=== PATIENT | female | born 1945 | race Caucasian/White ===

== ENCOUNTER → 2020-12-02 06:44 | Outpatient (CLI) | payer OTHER, SELFPAY ==
[2020-12-03 21:01] LABS: SARS-CoV-2 RNA PCR Negative
== END ==
PROVIDERS: PCP Internal Medicine; Visit Provider Internal Medicine
DX: Z20.822 Contact with and (suspected) exposure to COVID-19 (principal)
CPT/HCPCS: C9803; U0003; U0005

== ENCOUNTER 2021-06-09 01:12 | Day surgery (SDC) | payer OTHER, SELFPAY ==
[2021-06-07 14:41] VITALS: BMI 22.3
--- NOTE | 2021-06-08 10:56 | P.PNAN_ITS ---
Anes - Initial Pre Proc Eval Procedure: Operation Date: 06/09/21 11:45 Proposed Procedures p Trans Urethral Resection Bladder Tumor - Derek Zhang MD s Cystoscopy, Bilateral Retrograde Pyelogram - Derek Zhang MD Date/Time: 06/08/21 10:56 Surgeon: Derek Zhang MD Pre Op Diagnosis: bladder tumor, bladder CA Patient Data Age: 75 Gender: F Height: 1.65 m Weight: 60.9 kg Allergies Allergy/AdvReac Type Severity Reaction Status Date / Time sulfamethizole Allergy Unknown Pruritic Verified 06/07/21 14:36 rash trimethoprim Allergy Unknown Pruritic Verified 06/07/21 14:36 rash Home Medications Medication Instructions Recorded Confirmed Type conjugated estrogens 0.3 mg tablet 0.3 mg PO DAILY 08/08/19 06/07/21 History mirabegron 50 mg tablet,extended 50 mg PO QAM 09/01/19 06/07/21 History release 24 hr levothyroxine 75 mcg QAM 06/07/21 06/07/21 History oxybutynin chloride 5 mg PO QAM 06/07/21 06/07/21 History Patient hx anesthesia problems: none Family hx anesthesia problems: none Results Review: All pre-operative results and documents have been reviewed as part of the pre-operative evaluation. [facility] Past Medical History Medical History (Updated 06/08/21 @ 10:57 by Franck Rice DO) Bladder cancer Chronic pain of both knees Hypothyroidism Mild cognitive impairment Mixed stress and urge urinary incontinence PONV (postoperative nausea and vomiting) Rash Renal cyst Surgical History Surgical History (Updated 06/08/21 @ 10:57 by Franck Rice DO) History of cholecystectomy History of hysterectomy Family History Family History Sibling Asthma Family history of malignant neoplasm Family history of malignant neoplasm of kidney Patient's sister is Patient's brother is Mother Family history of malignant neoplasm of kidney Patient's mother is Father Patient's father is Social History Social History Smoking status: Never smoker Second hand tobacco smoke exposure: No Alcohol intake: never Substance use: never Substance use type: does not use Living arrangements: alone Spiritual care concerns: No Anes - Eval Final PreProcedure Day of Procedure 06/08/21 10:56 Patient weight: normal Heart: regular rate and rhythm Lungs: clear to auscultation and normal air movement Airway: Mallampati scale class II Neurological: alert and oriented Last oral intake: >/= 8 hours ASA classification: III Emergent: no Anesthetic plan: proceed Anesthesia type and monitoring: general LMA and standard monitoring Results Review: All pre-operative results and documents have been reviewed as part of the pre-operative evaluation. Informed Consent: The patient's anesthetic plan and its attendant risks and benefits were discussed with the patient/family/POA. Questions were solicited and answers provided to the satisfaction of the patient/family/POA.
[2021-06-09] VITALS (11 sets, daily range): BP systolic 139–187; BP diastolic 63–81; PULSE 60–69; RESP 12–20; TEMP 36.4–36.8; O2SAT 94–100
--- NOTE | ~2021-06-09 | XR_ITS ---
EXAMINATION: XR retrograde pyelogram BI EXAM DATE: 06/09/2021 12:31 INDICATION: Bilateral retrograde pyelogram. TECHNIQUE: Fluoroscopy used during XR retrograde pyelogram BI performed by Dr. Derek Zhang MD , urologist. The radiologist Sincere Kapoor M.D. dictating this report of the image(s) available was no t present for the procedure. Total fluoroscopic time of 27 seconds. The DAP for this procedure was 414 radcm2. A total of 137 images sent to PACS from the exam. FINDINGS: Right ureter was cannulated and injected. No focal strictures or filling defects. No contra st extravasation. The left ureter was then cannulated and injected. Small gas bubble in the distal as pect of the ureter. Otherwise no filling defects or strictures. Correlate with procedure note. Pelvic and right upper quadrant surgical clips. IMPRESSION: Fluoroscopy used during bilateral pyelograms. Reviewed, dictated and finalized at location B.
--- NOTE | 2021-06-09 06:44 | WPDHPUPDATE1 ---
History and Physical Update Update Date/Time: 06/09/21 06:44 History and Physical has been reviewed, including an updated exam of the patient. There are NO changes in the patient's condition. Risks, benefits, and alternatives have been discussed and questions answered. Patient agrees to proceed with procedure.
[2021-06-09] MEDS: LACTATED RINGERS 1,000 ML 30 ML IV CONT (10:50)
[2021-06-09] MEDS: ceFAZolin 2 GM/D5W 50 ML 2 GM/50 ML BAG IVPB (11:51)
--- NOTE | 2021-06-09 12:49 | W.PM.PROC2 ---
Procedure Note - Detailed Date of Procedure 06/09/21 Pre-op Diagnosis Bladder tumor Post-op Diagnosis same Procedure Performed TURBT (small, 2cm), bilat. RPG, left ureterosocpy Surgeon Derek Zhang MD Description of Procedure Patient brought to the operative suite receives prepped draped in routine sterile fashion while in the dorsal lithotomy position after the uneventful induction of a general anesthetic. Cystoscopy is undertaken with a 24 F resectoscope. She just has the 1 papillary lesion in the left posterior lateral bladder wall overlying left ureteral orifice. I did a deeper section with an attempt made to resect some of her intramural left ureter. Base and periphery cauterized care taken to avoid any cautery around the left ureteral orifice. Bilateral retrograde pyelography showed no upper tract filling defects or obstruction. Did do left ureteroscopy and saw no visible neoplasm in the distal left ureter. Scopes and wires removed and an 18 F catheter was placed for subsequent instillation of gemcitabine. Estimated Blood Loss 0 Drains No Packing No Pathology yes Complications No immediate complications Condition stable Disposition PACU
--- NOTE | 2021-06-09 12:52 | W.PM.PROC2 ---
Procedure Note - Detailed Date of Procedure 06/09/21 Pre-op Diagnosis bladder tumor, bladder CA Post-op Diagnosis same Procedure Performed Gemcitabine installation Surgeon Derek Zhang MD Anesthesia none Description of Procedure With the patient in the supine position, a 16F Thayer catheter is placed using sterile technique. Using a protective facemask, gown and double layer of gloves Gemcitabine 2gm in 100cc saline is administered through the catheter/into the bladder. The catheter is then plugged. Patient was instructed to lie supine x20min, then to roll both the left and right x20 min. each. Total dwell time will be 60 min., after which the bladder will be drained and catheter removed. Estimated Blood Loss 0 Drains No Packing No Pathology none sent Complications No immediate complications Condition stable Disposition PACU
[2021-06-09] MEDS: SODIUM CHLORIDE 0.9% IV 23.7 ML, GEMCITABINE HCL 1,000 MG BLADDER ×2 (13:02→13:03)
[2021-06-09] MEDS: fentaNYL CITRATE INJ (*CRX) 100 MCG/2 ML VIAL 25 MCG IV PUSH ×4 (13:11→13:28)
== END 2021-06-09 15:11 | disposition home or self-care (01) ==
PROVIDERS: PCP Internal Medicine; Visit Provider Urology
PROC: 0TBB8ZZ Excision of Bladder, Via Natural or Artificial Opening Endoscopic (ICD-10-PCS; CPT 52234; principal; 2021-06-09 11:45)
PROC: (CPT 52352; 2021-06-09 11:45)
DX: C67.8 Malignant neoplasm of overlapping sites of bladder (principal); E03.9 Hypothyroidism, unspecified; G31.84 Mild cognitive impairment of uncertain or unknown etiology
CPT/HCPCS: 52234; 51720; 74420; 88305; A9270; C1758; C1769; J0690; J1100; J2405; J2704; J3010; J7120; J9201; Q9966

== ENCOUNTER 2022-04-06 00:31 | Day surgery (SDC) | payer OTHER, SELFPAY ==
--- NOTE | 2022-04-03 13:02 | PC.NURSE ---
Report to the Outpatient Waiting Room, entrance under the green pavilion located off [facility], at time _1000 on date __04/06/22 . OR Time: __1200 . - You and your visitor will be asked to self-screen and do not enter if you have any COVID symptoms. - Only one visitor and NO children visitors are allowed at this time. - The patient visitor is requested to leave or wait in car when not with patient due to restrictions. - A mask is required within the hospital. Patients may have clear liquids (water, carbonated beverages, clear teas, apple juice) until 3 hours prior to surgery with a maximum of 20 ounces. - No food from midnight until time of surgery - Infants may have breast milk until 4 hours before surgery, infant formula 6 hours prior to surgery. - Children will be allowed to drink immediately following surgery. If applicable, please bring a bottle or sippy cup to assist with drinking. Juice, water, soda, and popsicles are readily available. For infants on formula, please bring formula the day of surgery. Pacifiers are allowed. Take the following medications with a SIP of water the morning of surgery: ___LEVOTHYROXINE , ALPRAZOLAM IF NEEDED Medications to discontinue per physician NONE Date to take last dose Please no make-up, nail bengali, hairspray, perfume, deodorant, or body powder the day of surgery. No jewelry (including any body piercings) or valuables the day of surgery, leave them at home. Please take a shower or bath the night before, or the morning of, surgery with an antibacterial soap. Wear comfortable, loose fitting clothing. Children are encouraged to wear pajamas. - Jewelry must be removed prior to entering the operating room. Rings and piercings that are not removed may be cut off. - The hospital will not accept responsibility for valuables. - Please leave all valuables, including medications, at home the day of surgery. If you are going home after surgery, a licensed motor driver must drive you home. - NO public transportation without another adult. - We recommend that an adult stay with you for 24 hours following discharge. - We also recommend that you do not drive, make important decision, drink alcoholic beverages, or take any drugs that were not prescribed by your health care provider for at least 24 hours after your discharge time. For Pediatric surgeries, we recommend two adults accompany the child home (only one inside the building at this time). Follow any additional instructions given to you from your surgeon. If you or anyone in your household have experienced Covid symptoms in the past week, please notify your surgeon or the nurse liaison at the phone number below for possible testing. Telephone instructions given to _PATIENT and asked if any additional questions and then verbalized understanding. Patient advised to call surgeon office or pre surgery nurse liaison [phone] if any additional questions.
[2022-04-03 13:09] VITALS: BMI 22.8
--- NOTE | 2022-04-05 13:11 | WPDANESEPPF ---
Anes - Initial Pre Proc Eval Procedure: Operation Date: 04/06/22 10:45 Proposed Procedures p Trans Urethral Resection Bladder Tumor with Gemcitabine Instillation - Derek Zhang MD Date/Time: 04/05/22 13:11 Surgeon: Derek Zhang MD Pre Op Diagnosis: Bladder Cancer Patient Data Age: 76 Gender: F Height: 1.65 m Weight: 62.15 kg Allergies Allergy/AdvReac Type Severity Reaction Status Date / Time sulfamethizole Allergy Intermediate Pruritic Verified 04/06/22 09: rash trimethoprim Allergy Intermediate Pruritic Verified 04/06/22 09:22 rash Home Medications Medication Instructions Recorded Confirmed Type conjugated estrogens 0.3 mg tablet 0.3 mg PO DAILY 08/08/19 04/03/22 History (Premarin) mirabegron 50 mg tablet,extended 50 mg PO QAM 09/01/19 04/06/22 History release 24 hr (Myrbetriq) oxybutynin chloride 5 mg 5 mg PO QAM 06/07/21 04/06/22 History tablet,extended release 24 hr alprazolam 0.25 mg tablet 0.25 mg PO TID PRN anxiety #30 tabs 07/26/21 04/06/22 Rx levothyroxine 100 mcg tablet 100 mcg PO DAILY #30 tabs 03/27/22 04/06/22 Rx ECG: Last EK07/26/21 Rhythm: sinus Rate: 56 AV conduction: normal QRS axis and voltage: normal ST/T wave abnormality: Q-T interval prolongation Patient hx anesthesia problems: none Family hx anesthesia problems: none Results Review: All pre-operative results and documents have been reviewed as part of the pre-operative evaluation. [facility] Past Medical History Medical History (Updated 03/27/22 @ 14:15 by TESS Manrique) Anxiety disorder, unspecified Bladder cancer Bradycardia Chest pain Chronic pain of both knees Eye irritation Hypothyroidism Knee pain Long QT interval Mild cognitive impairment Mixed stress and urge urinary incontinence PONV (postoperative nausea and vomiting) Rash Renal cyst Surgical History Surgical History History of cholecystectomy History of hysterectomy Family History Family History Sibling Asthma Family history of malignant neoplasm Family history of malignant neoplasm of kidney Patient's sister is Patient's brother is Mother Family history of malignant neoplasm of kidney Patient's mother is Father Patient's father is Social History Social History Smoking status: Never smoker Second hand tobacco smoke exposure: No Alcohol intake: never Substance use: never Substance use type: does not use Living arrangements: alone Spiritual care concerns: No Anes - Eval Final PreProcedure Day of Procedure 04/05/22 13:11 Patient weight: normal Heart: regular rate and rhythm Lungs: clear to auscultation and normal air movement Airway: Mallampati scale class II Neurological: alert and oriented Last oral intake: >/= 8 hours ASA classification: III Emergent: no Anesthetic plan: proceed Anesthesia type and monitoring: general GIVS and LMA and standard monitoring Results Review: All pre-operative results and documents have been reviewed as part of the pre-operative evaluation. Informed Consent: The patient's anesthetic plan and its attendant risks and benefits were discussed with the patient/family/POA. Questions were solicited and answers provided to the satisfaction of the patient/family/POA.
[2022-04-06] VITALS (9 sets, daily range): BP systolic 121–181; BP diastolic 60–84; PULSE 55–65; RESP 12–16; TEMP 36.1–36.3; O2SAT 96–100
--- NOTE | 2022-04-06 06:49 | WPDHPUPDATE1 ---
History and Physical Update Update Date/Time: 04/06/22 06:49 History and Physical has been reviewed, including an updated exam of the patient. There are NO changes in the patient's condition. Risks, benefits, and alternatives have been discussed and questions answered. Patient agrees to proceed with procedure.
[2022-04-06] MEDS: LACTATED RINGERS 1,000 ML 30 ML IV CONT (09:44)
[2022-04-06] MEDS: ceFAZolin 2 GM/D5W 50 ML 2 GM/50 ML BAG IVPB (10:27)
[2022-04-06] MEDS: LIDOCAINE HCL 2% GEL UROJET 10 ML PKG MUCOUS MEM (10:45)
--- NOTE | 2022-04-06 10:59 | W.PM.PROC2 ---
Procedure Note - Detailed Date of Procedure 04/06/22 Pre-op Diagnosis Bladder Cancer Post-op Diagnosis Same Procedure Performed TURBT (medium, 3-4cm) Surgeon Derek Zhang MD Anesthesia MAC Description of Procedure The patient was brought to the operative suite where she is prepped and draped in a routine sterile fashion while in the dorsal lithotomy position. This is done after the uneventful administration of systemic sedation. 2% Xylocaine jelly is introduced intraurethrally and allowed to stand for an appropriate period of time. A 24F resectoscope sheath was placed in the bladder and the bladder is circumferentially inspected carefully. She has a the several small papillary neoplasms in the posterior bladder wall. These resected with attempt made to include detrusor muscle for pathological evaluation of invasion. The base and periphery cauterized with a rollerball electrode. The bladder is emptied and the resectoscope was removed. The patient is taken to the recovery room having tolerated this procedure well. Drains Yes Packing No Pathology Yes Complications No immediate complications
--- NOTE | 2022-04-06 11:03 | W.PM.PROC2 ---
Procedure Note - Detailed Date of Procedure 04/06/22 Pre-op Diagnosis Bladder Cancer Post-op Diagnosis Same Procedure Performed Gemcitabine installation Surgeon Derek Zhang MD Description of Procedure With the patient in the supine position, a 16F Thayer catheter is placed using sterile technique. Using a protective facemask, gown and double layer of gloves Gemcitabine 2gm in 100cc saline is administered through the catheter/into the bladder. The catheter is then plugged. Patient was instructed to lie supine x20min, then to roll both the left and right x20 min. each. Total dwell time will be 60 min., after which the bladder will be drained and catheter removed.
[2022-04-06] MEDS: SODIUM CHLORIDE 0.9% IV 23.7 ML, GEMCITABINE HCL 1,000 MG BLADDER ×2 (11:07)
[2022-04-06] MEDS: fentaNYL CITRATE INJ (*CRX) 100 MCG/2 ML VIAL 25 MCG IV PUSH ×4 (11:24→11:53)
[2022-04-06] MEDS: SODIUM CHLORIDE 0.9% IV 50 ML BAG 150 ML IRRIGATION (12:15)
[2022-04-06] MEDS: IBUPROFEN 400 MG TABLET 800 MG PO (13:07)
== END 2022-04-06 13:31 | disposition home or self-care (01) ==
PROVIDERS: PCP Family Medicine; Visit Provider Urology
PROC: 0TBB8ZZ Excision of Bladder, Via Natural or Artificial Opening Endoscopic (ICD-10-PCS; CPT 51720; principal; 2022-04-06 10:45)
DX: C67.4 Malignant neoplasm of posterior wall of bladder (principal); Z90.49 Acquired absence of other specified parts of digestive tract; E03.9 Hypothyroidism, unspecified; F41.9 Anxiety disorder, unspecified; R00.1 Bradycardia, unspecified; G31.84 Mild cognitive impairment of uncertain or unknown etiology; N39.46 Mixed incontinence; N28.1 Cyst of kidney, acquired
CPT/HCPCS: 51720; 52235; 88305; A9270; J0690; J2704; J3010; J7120; J9201

== ENCOUNTER 2022-08-14 09:09 | Emergency (ER) | payer OTHER, SELFPAY ==
[2022-08-14 09:19] VITALS: BP 177/80; PULSE 68; RESP 16; TEMP 36.3; O2SAT 98
--- NOTE | 2022-08-14 09:24 | ED.GENADULT ---
HPI - General Adult General Chief complaint: Unspecified Stated complaint: Eyes Irritation/ Abdominal Pain Time Seen by Provider: 08/14/22 09:24 Source: patient, RN notes reviewed and old records reviewed Mode of arrival: ambulatory Limitations: no limitations History of Present Illness HPI narrative: 76-year-old female presents to the [facility] with bilateral eye irritation since Sunday. Reports Sunday her left eye was crusted shut and has been watering and has had drainage from it. No blurry vision or change in vision. No trauma. Does not wear contact lenses. States on Sunday she had an upset stomach. No abdominal discomfort on exam today. Related Data Home Medications Medication Instructions Recorded Confirmed conjugated estrogens 0.3 mg tablet 0.3 mg PO DAILY 08/08/19 08/14/22 (Premarin) mirabegron 50 mg tablet,extended 50 mg PO QAM 09/01/19 08/14/22 release 24 hr (Myrbetriq) oxybutynin chloride 5 mg 5 mg PO QAM 06/07/21 08/14/22 tablet,extended release 24 hr Allergies Allergy/AdvReac Type Severity Reaction Status Date / Time sulfamethizole Allergy Intermediate Pruritic Verified 08/14/22 09:24 rash trimethoprim Allergy Intermediate Pruritic Verified 08/14/22 09:24 rash Review of Systems Review of Systems: All systems reviewed & are unremarkable except as noted in HPI and below Constitutional: Constitutional: Reports no additional constitutional complaints Eyes: Eyes: Reports as per HPI, Denies change in vision and Denies photophobia ENT: Reports system reviewed and no additional complaints, except as documented Cardiovascular: Cardiovascular: Reports no additional cardiovascular complaints, Denies chest pain and Denies dyspnea Respiratory: Respiratory: Reports no additional respiratory complaints, Denies chest congestion, Denies cough and Denies dyspnea Gastrointestinal: Gastrointestinal: Reports no additional gastrointestinal complaints, Denies abdominal pain, Denies nausea and Denies vomiting Musculoskeletal: Musculoskeletal: Reports no additional musculoskeletal complaints Integumentary/Breasts: Skin/Breast: Reports system reviewed and no additional complaints, except as docu Neurologic: Reports system reviewed and no additional complaints, except as documented Psychiatric: Psychiatric: Reports no additional psychiatric complaints Allergic/Immunologic: Allergic/Immunologic: Reports no additional allergic/immunologic complaints PMFSH Past Medical History Medical History Anxiety disorder, unspecified Bladder cancer Bradycardia Chest pain Chronic pain of both knees Eye irritation Hypothyroidism Knee pain Long QT interval Mild cognitive impairment Mixed stress and urge urinary incontinence PONV (postoperative nausea and vomiting) Rash Renal cyst Surgical History Surgical History History of cholecystectomy History of hysterectomy Family History Family History Sibling Asthma Family history of malignant neoplasm Family history of malignant neoplasm of kidney Patient's sister is Patient's brother is Mother Family history of malignant neoplasm of kidney Patient's mother is Father Patient's father is Social History Social History Smoking status: Never smoker Second hand tobacco smoke exposure: No Alcohol intake: never Substance use: never Substance use type: does not use Gender identity (if verbalized by the patient): Female Sexual Orientation (if Verbalized by the Patient): Straight or Heterosexual Spiritual care concerns: No Comments At the time of my signature, I reviewed and agree with the nursing past medical, surgical, social, and family hi
== END 2022-08-14 09:45 | disposition home or self-care (01) ==
PROVIDERS: Emergency Provider Nurse Practitioner; PCP Family Medicine
DX: H10.9 Unspecified conjunctivitis (principal); E03.9 Hypothyroidism, unspecified
CPT/HCPCS: 99213; G0463

== ENCOUNTER 2023-05-10 00:55 | Day surgery (SDC) | payer OTHER, SELFPAY ==
--- NOTE | 2023-05-03 15:52 | PM.HPGS ---
History of Present Illness History of Present Illness Consent: Risks, benefits, and alternatives have been discussed and questions answered. Patient agrees to proceed with procedure. 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 This was 1st found in May 2021. She has an intermediate risk bladder cancer. Recent surveillance cystoscopy showed 2 small recurrent lesions in the posterior midline just above the trigone. After discussion of options she elects to proceed with cystoscopy, transurethral resection bladder tumor, gemcitabine installation. She is aware of the risks including, but not limited to, need for additional procedures, injury to bladder which could require additional surgery and hematuria. Review of Systems Review of Systems: All systems reviewed & are unremarkable except as noted in HPI and below PMFSH Past Medical History Medical History Anxiety disorder, unspecified Bladder cancer BMI 22.0-22.9, adult Bradycardia Chest pain Chronic pain of both knees Eye irritation H/O primary malignant neoplasm of urinary bladder Hypothyroidism Knee pain Long QT interval Mild cognitive impairment Mixed stress and urge urinary incontinence PONV (postoperative nausea and vomiting) Rash Renal cyst Surgical History Surgical History History of cholecystectomy History of hysterectomy Family History Family History Sibling Asthma Family history of malignant neoplasm Family history of malignant neoplasm of kidney Patient's sister is Patient's brother is Mother Family history of malignant neoplasm of kidney Patient's mother is Father Patient's father is Social History Social History Smoking status: Never smoker Second hand tobacco smoke exposure: No Alcohol intake: never Substance use: never Substance use type: does not use Lack of Transportation: No Lack of Food: Never True Current Housing: I Have Housing Concerned About Future Housing: No Difficulty Paying Gas/Electric Bills: No Difficulty Paying for Meds: No Currently Unemployed: No Education: High School Diploma/GED Difficulty w/ Childcare or Family Care: No Living arrangements: alone Occupation/Education: retired 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 Gender identity (if verbalized by the patient): Female Sexual Orientation (if Verbalized by the Patient): Straight or Heterosexual Spiritual care concerns: No Meds Home Medications and Allergies Home Medications Medication Instructions Recorded Confirmed Type mirabegron 50 mg tablet,extended 50 mg PO QAM 09/01/19 01/19/23 History release 24 hr (Myrbetriq) oxybutynin chloride 5 mg 5 mg PO QAM 06/07/21 01/19/23 History tablet,extended release 24 hr alprazolam 0.25 mg tablet 0.25 mg PO TID PRN anxiety #30 tabs 07/25/22 01/19/23 Rx conjugated estrogens 0.3 mg tablet 0.3 mg PO DAILY #90 tabs 10/13/22 01/19/23 Rx (Premarin) furosemide 20 mg tablet 20 mg PO QAM PRN edema #14 tabs 01/19/23 01/19/23 Rx levothyroxine 112 mcg tablet 112 mcg PO DAILY #30 tabs 02/04/23 Rx Allergies Allergy/AdvReac Type Severity Reaction Status Date / Time sulfamethizole Allergy Intermediate Pruritic Verified 01/19/23 10:59 rash trimethoprim Allergy Intermediate Pruritic Verified 01/19/23 10:59 rash Exam Const: General: no acute distress Resp: Effort & Inspection: normal respiratory effort GI: Inspection: non-distended GI Palp: No abdominal tenderness and No Guarding due to palpation present
[2023-05-04 13:12] VITALS: BMI 23.8
--- NOTE | 2023-05-04 13:16 | PC.NURSE ---
Report to the Outpatient Waiting Room, entrance under the green pavilion located off [facility], at time _1100 on date __05/10/23 . Planned Procedure Time: ___1 PM . Time changes happen often and if your time is changed the preop area will call you the afternoon before. - You and your visitor will be asked to self-screen and do not enter if you have any COVID symptoms. - A mask is optional within the hospital at this time. Patients may have clear liquids (water, carbonated beverages, clear teas, apple juice) until 3 hours prior to surgery (1000 AM) with a maximum of 20 ounces. - No food from midnight until time of surgery - Infants may have breast milk until 4 hours before surgery, formula 6 hours prior to surgery. - Children will be allowed to drink immediately following surgery. If applicable, please bring a bottle or sippy cup to assist with drinking. Juice, water, soda, and popsicles are readily available. For infants on formula, please bring formula the day of surgery. Pacifiers are allowed. Take the following medications with a SIP of water the morning of surgery: _LEVOTHYROXINE, ALPRAZOLAM IF NEEDED_ DO NOT STOP ANY OF YOUR OTHER PRESCRIPTION MEDICATIONS PRIOR TO SURGERY ?EXCEPT THE FOLLOWING Medications to discontinue per physician N/A Date to take last dose Please no make-up, nail indonesian, hairspray, perfume, deodorant, or body powder the day of surgery. No jewelry (including any body piercings) or valuables the day of surgery, leave them at home. Please take a shower or bath the night before, or the morning of, surgery with an antibacterial soap. Wear comfortable, loose fitting clothing. Children are encouraged to wear pajamas. - Jewelry must be removed prior to entering the operating room. Rings and piercings that are not removed may be cut off. - The hospital will not accept responsibility for valuables. - Please leave all valuables, including medications, at home the day of surgery. If you are going home after surgery, a licensed transit bus driver must drive you home. - NO public transportation without another adult if you receive anesthesia. - We recommend that an adult stay with you for 24 hours following discharge. - We also recommend that you do not drive, make important decision, drink alcoholic beverages, or take any drugs that were not prescribed by your health care provider for at least 24 hours after your discharge time. For Pediatric surgeries, we recommend two adults accompany the child home. Follow any additional instructions given to you from your surgeon. If you or anyone in your household have experienced Covid symptoms in the past week, please notify your surgeon or the nurse liaison at the phone number below for possible testing. Telephone instructions given to ___PATIENT and asked if any additional questions and then verbalized understanding. Patient advised to call surgeon office or pre surgery nurse liaison [phone] if any additional questions.
[2023-05-10] VITALS (9 sets, daily range): BP systolic 139–187; BP diastolic 61–97; PULSE 62–70; RESP 10–16; TEMP 36.1–36.4; O2SAT 95–100; BMI 23.1
--- NOTE | 2023-05-10 06:39 | WPDHPUPDATE1 ---
History and Physical Update Update Date/Time: 05/10/23 06:39 History and Physical has been reviewed, including an updated exam of the patient. There are NO changes in the patient's condition. Risks, benefits, and alternatives have been discussed and questions answered. Patient agrees to proceed with procedure.
[2023-05-10] MEDS: LACTATED RINGERS 1,000 ML 30 ML IV CONT (11:40)
--- NOTE | 2023-05-10 11:55 | WPDANESEPPF ---
Anes - Initial Pre Proc Eval Procedure: Operation Date: 05/10/23 13:00 Proposed Procedures p Trans Urethral Resection Bladder Tumor with Gemcitabine Instillation - Derek Zhang MD Date/Time: 05/10/23 11:55 Surgeon: Derek Zhang MD Pre Op Diagnosis: Bladder Ca Patient Data Age: 77 Gender: F Height: 1.65 m Weight: 63.2 kg Last Vital Signs Temp 36.1 C L 05/10/23 11:10 Pulse 62 05/10/23 11:10 Resp 16 05/10/23 11:10 BP 187/61 H 05/10/23 11:10 Pulse Ox 99 05/10/23 11:10 O2 Del Method Room Air 05/10/23 11:10 Allergies Allergy/AdvReac Type Severity Reaction Status Date / Time sulfamethizole Allergy Intermediate Pruritic Verified 05/10/23 11:25 rash trimethoprim Allergy Intermediate Pruritic Verified 05/10/23 11:25 rash Home Medications Medication Instructions Recorded Confirmed Type mirabegron 50 mg tablet,extended 50 mg PO QAM 09/01/19 05/04/23 History release 24 hr (Myrbetriq) oxybutynin chloride 5 mg 5 mg PO QAM 06/07/21 05/04/23 History tablet,extended release 24 hr alprazolam 0.25 mg tablet 0.25 mg PO TID PRN anxiety #30 tabs 07/25/22 05/04/23 Rx conjugated estrogens 0.3 mg tablet 0.3 mg PO DAILY #90 tabs 10/13/22 05/04/23 Rx (Premarin) levothyroxine 112 mcg tablet 112 mcg PO DAILY #30 tabs 02/04/23 05/04/23 Rx Patient hx anesthesia problems: none Family hx anesthesia problems: none Results Review: All pre-operative results and documents have been reviewed as part of the pre-operative evaluation. [facility] Past Medical History Medical History Anxiety disorder, unspecified Bladder cancer BMI 22.0-22.9, adult Bradycardia Callus of foot Chest pain Chronic pain of both knees Eye irritation H/O primary malignant neoplasm of urinary bladder Hypothyroidism Knee pain Long QT interval Mild cognitive impairment Mixed stress and urge urinary incontinence PONV (postoperative nausea and vomiting) Rash Renal cyst Surgical History Surgical History History of cholecystectomy History of hysterectomy Family History Family History Sibling Asthma Family history of malignant neoplasm Family history of malignant neoplasm of kidney Patient's sister is Patient's brother is Mother Family history of malignant neoplasm of kidney Patient's mother is Father Patient's father is Social History Social History Smoking status: Never smoker Second hand tobacco smoke exposure: No Alcohol intake: never Substance use: never Substance use type: does not use Lack of Transportation: No Lack of Food: Never True Current Housing: I Have Housing Concerned About Future Housing: No Difficulty Paying Gas/Electric Bills: No Difficulty Paying for Meds: No Currently Unemployed: No Education: High School Diploma/GED Difficulty w/ Childcare or Family Care: No Living arrangements: alone Occupation/Education: retired Additional occupation/education comments: [employer] Gender identity (if verbalized by the patient): Female Sexual Orientation (if Verbalized by the Patient): Straight or Heterosexual Spiritual care concerns: No Anes - Eval Final PreProcedure Day of Procedure 05/10/23 11:55 Patient weight: normal Heart: regular rate and rhythm Lungs: clear to auscultation Airway: Mallampati scale class II Neurological: alert and oriented Last oral intake: >/= 8 hours ASA classification: III Emergent: no Anesthetic plan: proceed Anesthesia type and monitoring: general LMA and standard monitoring Results Review: All pre-operative results and documents have been reviewed as part of the pre-operative evaluation. Informed Consent:
[2023-05-10] MEDS: ceFAZolin 2 GM/D5W 50 ML 2 GM/50 ML BAG IVPB (12:10)
[2023-05-10] MEDS: LIDOCAINE HCL 2% GEL UROJET 10 ML PKG MUCOUS MEM (12:30)
--- NOTE | 2023-05-10 12:33 | W.PM.PROC2 ---
Procedure Note - Detailed Date of Procedure 05/10/23 Pre-op Diagnosis Bladder Ca Post-op Diagnosis Same Procedure Performed TURBT ( small, 1 cm ) Surgeon Derek Zhang MD Anesthesia General Description of Procedure patient is brought the op suite she has prepped draped in routine sterile fashion while in dorsal lithotomy position after the uneventful induction of a general LMA anesthetic. Cystoscopy is undertaken with a 24 F resectoscope. Bladder neck and urethra endoscopically normal. Bladder mucosa is normal with the exception of to contiguous papillary neoplasms in the posterior wall just above the trigone. Remainder of the bladder mucosa is without suspicious lesions. The ureteral orifices are identified and preserved throughout the procedure. Using a 24 F resectoscope I resected those neoplasms. Patient is a very thin bladder wall and I can see a tiny bit of perivesical fat. Base and periphery was cauterized. Left the 18 F catheter in to drainage which I will plan to leave until until next week. Estimated Blood Loss 0
[2023-05-10] MEDS: fentaNYL CITRATE INJ (*CRX) 100 MCG/2 ML VIAL 25 MCG IV PUSH ×2 (12:53→12:56)
--- NOTE | 2023-05-10 12:58 | SUR.PHASEI ---
1255 - dr. bonilla at bedside talking with patient
--- NOTE | 2023-05-10 15:39 | SUR.PHASEII ---
TEACHING RE: YAP CATHETER GIVEN TO PATIENT. LARGE COLLECTION BAG AND URINAL GIVEN TO PATIENT.
== END 2023-05-10 14:55 | disposition home or self-care (01) ==
PROVIDERS: PCP Family Medicine; Visit Provider Urology
PROC: 0TBB8ZZ Excision of Bladder, Via Natural or Artificial Opening Endoscopic (ICD-10-PCS; CPT 52234; principal; 2023-05-10 13:00)
DX: C67.4 Malignant neoplasm of posterior wall of bladder (principal); E03.9 Hypothyroidism, unspecified; F41.9 Anxiety disorder, unspecified; I45.81 Long QT syndrome; N39.46 Mixed incontinence
CPT/HCPCS: 52234; 88305; J0690; J2405; J2704; J3010; J7120; J9201

== ENCOUNTER 2023-11-24 19:01 | Emergency (ER) | payer OTHER, SELFPAY ==
[2023-11-24 19:21] VITALS: BP 163/74; PULSE 59; RESP 12; TEMP 37.2; O2SAT 100
--- NOTE | 2023-11-24 19:59 | ED.EYEPROB ---
HPI - Eye Problem General Chief complaint: Eye Problems Stated complaint: Eyes Irritation Time Seen by Provider: 11/24/23 19:35 Source: patient, RN notes reviewed and old records reviewed Mode of arrival: ambulatory Limitations: no limitations History of Present Illness HPI Narrative: 78-year-old female who presents to [facility] with complaints of irritation and redness to her left eye which started this morning with some matting noted when she awoke. 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 Patient visual acuity with glasses 20/30 bilaterally. Patient denies any visual changes or sharp pain to her left eye. MD chief complaint: eye redness and other (Eye irritation) Onset (ago): day(s) (this morning) Location: left eye Severity: mild Severity scale (1-10): 2 Treatments Prior to Arrival: other (warm compresses) Related Data Home Medications Medication Instructions Recorded Confirmed mirabegron 50 mg tablet,extended 50 mg PO QAM 09/01/19 11/24/23 release 24 hr (Myrbetriq) oxybutynin chloride 5 mg 5 mg PO QAM 06/07/21 11/24/23 tablet,extended release 24 hr Allergies Allergy/AdvReac Type Severity Reaction Status Date / Time sulfamethizole Allergy Intermediate Pruritic Verified 11/24/23 19:57 rash trimethoprim Allergy Intermediate Pruritic Verified 11/24/23 19:57 rash Review of Systems Review of Systems: CONSTITUTIONAL: Denies fever, chills, or sweats. EYES: Denies visual changes. Reports redness,, irritation, discharge.to her left eye, denies any sharp pain ENT: Denies rhinorrhea, congestion, sore throat, or otalgia. CARDIOVASCULAR: Denies chest pain, palpitations, or edema. RESPIRATORY: Denies cough or dyspnea. SKIN: Denies rash or itching. NEUROLOGIC: Denies headache All systems reviewed & are unremarkable except as noted in HPI and below PMFSH Past Medical History Medical History Anxiety disorder, unspecified Bladder cancer BMI 22.0-22.9, adult Bradycardia Callus of foot Chest pain Chronic pain of both knees Eye irritation H/O primary malignant neoplasm of urinary bladder Hypothyroidism Knee pain Long QT interval Mild cognitive impairment Mixed stress and urge urinary incontinence PONV (postoperative nausea and vomiting) Rash Renal cyst Surgical History Surgical History History of cholecystectomy History of hysterectomy Family History Family History Sibling Asthma Family history of malignant neoplasm Family history of malignant neoplasm of kidney Patient's sister is Patient's brother is Mother Family history of malignant neoplasm of kidney Patient's mother is Father Patient's father is Social History Social History Smoking status: Never smoker Second hand tobacco smoke exposure: No Alcohol intake: never Substance use: never Substance use type: does not use Lack of Transportation: No Lack of Food: Never True Current Housing: I Have Housing Concerned About Future Housing: No Difficulty Paying Gas/Electric Bills: No Difficulty Paying for Meds: No Currently Unemployed: No Education: High School Diploma/GED Difficulty w/ Childcare or Family Care: No Living arrangements: alone Occupation/Education: 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 There is no relevant family history pertinent to the presentin
== END 2023-11-24 20:10 | disposition home or self-care (01) ==
PROVIDERS: Emergency Provider Registered Nurse; PCP Family Medicine
DX: H10.32 Unspecified acute conjunctivitis, left eye (principal); E03.9 Hypothyroidism, unspecified; Z85.51 Personal history of malignant neoplasm of bladder
CPT/HCPCS: 99213; G0463

== ENCOUNTER 2025-07-13 12:47 | Outpatient (CLI) | payer OTHER, SELFPAY ==
--- NOTE | ~2025-07-13 | DEXA_ITS ---
Bone Density Report Name: ANUJ SANDHU Age: 79 Sex: Female Ethnicity: White Date of : 1945 Indication: postmenopausal; screening for osteoporosis; height loss; hysterectomy; Referring Provider: MANISH BRAMBILA Study: Bone densitometry was performed. Exam Date: July 13, 2025 Accession number: [id number] Bone Density: Region BMD T-score Z-score Classification AP Spine(L1-L4) 0.964 -0.8 2.0 Normal Femoral Neck (Left) 0.559 -2.6 -0.2 Osteoporosis Total Hip (Left) 0.731 -1.7 0.4 Osteopenia Femoral Neck (Right) 0.508 -3.1 -0.7 Osteoporosis Total Hip (Right) 0.713 -1.9 0.3 Osteopenia Total Hip Mean 0.722 -1.8 0.4 Osteopenia World Health Organization criteria for BMD impression classify patients as: Normal (T-score at or above -1.0), Osteopenia (T-score between -1.0 and -2.5), or Osteoporosis (T-score at or below -2.5). 10-year Fracture Risk: FRAX not reported because: Some T-score for Spine Total or Hip Total or Femoral Neck at or below -2.5 Clinical Information Provided by Patient: Has used the following medications: Vitamin D Has the following medical conditions: Hysterectomy Patient maximum height was 65.0 Menopause Age: 43 No regular weight bearing exercise Drinks caffeinated beverages Onset of menses at age 10 Number of children 4 Impression: The patient has osteoporosis, based on the Right Femoral Neck T-score. Discussion: INCREASED RISK OF FRACTURE. BONE DENSITY IS UNDESIRABLY LOW AT ONE OR MORE SKELETAL SITES, CONSISTENT WITH POSTMENOPAUSAL OSTEOPOROSIS. This patient's lowest T-score meets the World Health Organization's (WHO) criteria for osteoporosis at one or more sites (T-score -2.5 or below). In untreated patients, the risk of osteoporotic fracture increases approximately two-fold for each 1.0 SD decrease in T-score. Low bone density is not the only risk factor for fracture; also consider factors such as patient's age, frailty or poor health, risk of falling, risk of injury, previous osteoporotic fracture, family history of osteoporosis, cigarette smoking, low body weight, etc. Not everyone with low bone mineral density has osteoporosis; osteomalacia and other metabolic bone disorders should also be considered. Patients who have osteoporosis should be evaluated for specific diseases and conditions (secondary causes) that may cause or contribute to bone loss. The [place] Association of Clinical Endocrinologists (AACE) and National Osteoporosis Foundation (NOF) recommend pharmacologic intervention for all postmenopausal women whose T-score is in this range. The patient should follow a healthful lifestyle (good nutrition with adequate calcium and vitamin D, and appropriate weight-bearing exercise). Follow-Up: Consider a repeat BMD and Vertebral Fracture Assessment (VFA) exam in 2 years or sooner if medically necessary, to reassess this patient's status. Reported by: MAYA on 07/13/2025 1:43:00 PM. Reviewed, dictated and finalized at location A.
--- OUTSIDE RECORDS SUMMARY | 2025-07-13 13:53 | XMS_ITS | Clinical Summary ---
Author Organization [facility] [place] Address [address] [place] [address] Care Team Providers Care Geology Professor Name Role Phone Pedrito Moran MD Primary Care Provider [phone] Allergies Active Allergy Reactions Criticality Noted Date Comments Sulfa Antibiotics Rash Low 06/10/2025 Sulfamethoxazole-Trimethoprim Hives High 2021 Trimethoprim Rash High 11/24/2023 Medications acetaminophen (TYLENOL) 500 MG tabletIndicati ons:mild pain/fever Take 2 tablets by mouth every 6 (six) hours. Indications: mild pain/fever 06/10/20 Active levothyroxine (SYNTHROID) 125 MCG tabletIndicati ons:low thyroid Take 1 tablet by mouth daily. Indications: low thyroid Active polyethylene glycol (GLYCOLAX) 17 GM/SCOOP powderIndicati ons:constipati on Take 17 g by mouth daily. Indications: constipation 06/10/20 Active solifenacin succinate (VESICARE) 10 MG TabIndications :overactive bladder Take 1 tablet by mouth daily. Indications: overactive bladder Active vitamin D2, ergocalciferol , (DRISDOL) 1.25 mg capsuleIndicat ions:vitamin deficiency Take 1 capsule by mouth once a week. Indications: vitamin deficiency Active oxybutynin XL (DITROPAN-XL) 5 MG 24 hr tabletIndicati ons:overactive bladder Take 1 tablet by mouth daily. Indications: overactive bladder 05/31/20 25 Active WALKER MISC, DME,Indication s:Unsteady Gait 1 Device by Does not apply route as needed. Indications: Unsteady Walk 1 Device 06/19/20 25 2025 Active HYDROcodone-ac etaminophen (NORCO) 5-325 MG tabletIndicati ons:Acute Pain < 7 Day Supply Take 1 tablet by mouth every 6 (six) hours as needed. Indications: Acute Pain < 7 Day Supply 22 tablet 06/20/20 Active naloxone (NARCAN) 4 MG/0.1ML nasal sprayIndicatio ns:Pelvic Fracture 1 spray by Nasal route as needed for Opioid reversal. Indications: Fracture of the Pelvic Bone may repeat every 2 to 3 minutes in alternating nostrils until medical assistance becomes available 1 each 06/20/202025 Active ALPRAZolam (XANAX) 0.25 MG tabletIndicati ons:Generalize d Anxiety Disorder Take 1 tablet (0.25 mg total) by mouth daily as needed for Anxiety. Indications: Generalized Anxiety Disorder 30 tablet 06/20/20 25 2024 Active apixaban (ELIQUIS) 2.5 MG tablet Take 1 tablet (2.5 mg total) by mouth 2 (two) times daily. 06/10/202024 Discontinued methocarbamol (ROBAXIN) 500 MG tablet Take 1 tablet (500 mg total) by mouth 3 (three) times daily. 06/10/202024 Discontinued(S top Taking at Discharge) lidocaine (LIDODERM) 5 % Place 1 patch onto the skin daily. 06/10/202024 Discontinued(S top Taking at Discharge) oxybutynin (DITROPAN) 5 MG tablet Take 1 tablet (5 mg total) by mouth 3 (three) times daily. 2024 Discontinued(E rror) ALPRAZolam (XANAX) 0.25 MG tablet Take 1 tablet (0.25 mg total) by mouth 3 (three) times daily as needed for Sleep or Anxiety. 2024 Discontinued(S top Taking at Discharge) Senna (SENOKOT) 8.6 MG tabletIndicati ons:Constipati on Take 1 tablet (8.6 mg total) by mouth nightly as needed for Constipation. Indications: Constipation 14 tablet 06/20/20 25 2024 apixaban (ELIQUIS) 2.5 MG tabletIndicati ons:Deep Vein Thrombosis Prophylaxis Take 1 tablet (2.5 mg total) by mouth 2 (two) times daily for 14 days. Indications: Treatment to Prevent Deep Vein Thrombosis 28 tablet 06/20/20 25 2024 Active Problems Problem Noted Date Diagnosed Date Physical deconditioning 06/10/2025 Encounters Date Type Department Care Team Description 07/08/2025 10:45 AM BATCH ROOM TECHNICIAN Home Care Visit [facility] [address] [place] [address] Brooks Shore, [employer] HOME VISIT 07/06/2025 11:45 AM BATCH ROOM TECHNICIAN Home Care Visit [place] [address] [place] [address] [place], [employer] PT HOME VISIT 07/01/2025 3:00 PM BATCH ROOM TECHNICIAN Home Care Visit [place] [address] [place] [address] Kady Lepe, PT PT HOME VISIT 06/30/2025 9:00 AM BATCH ROOM TECHNICIAN Home Care Visit [address] [address] [place] [address] Daniella Walker RN SN DISCIPLINE DISCHARGE 06/30/2025 Home Care Visit [place] [address] [place] [address] Daniella Walker RN [facility] INTERDISCIPLINARY [place] 06/29/2025 2:45 PM BATCH ROOM TECHNICIAN Home Care Visit [place] [address] [place] [address] Kady Lepe, PT PT HOME VISIT 06/24/2025 10:15 AM BATCH ROOM TECHNICIAN Home Care Visit [place] [address] [place] [address] Todd Rojas, PT PT INITIAL EVALUATION 06/23/2025 1:00 PM BATCH ROOM TECHNICIAN Home Care Visit [place] [address] [place] [address] Madeline Villegas RN SN OASIS START OF CARE 06/23/2025 Plan of Care Documentation [facility] Home Care [address] [place] [address] 06/10/2025 2:40 PM CDT - 06/20/2025 1:12 PM BATCH ROOM TECHNICIAN Hospital Encounter [facility] Med/Surg [address] [place] [address] Easton Luther MD Mahtani, Andrew, MD Harris, Michael, MD Discharge Disposition: Home with Home Health Care 06/10/2025 Travel 06/09/2025 Telephone [facility] Care Management [address] [place] [address] Cecy Hernandes RN Referral (Swing bed referral to [facility]/) from Last 3 Months Social History Tobacco Use Types Packs/Day Years Used Date Smoking Tobacco: Never Smokeless Tobacco: Never Tobacco Cessation:Counseling Given: Not Answered Alcohol Use Standard Drinks/Week Comments Never 0 (1 standard drink = 0.6 oz pur e alcohol) OASIS D0700: Social Isolation Answer Da te Recorded Frequency of experiencing loneliness or isolatio n Rarely 06/23/2025 OASIS A1250: Transportation Answer Date Recorded Lack of Transportation (Medical) No 06/23/2025 Lack of Transportation (Non-Medical) No 06/23/2025 Patient Unable or Declines to Respond No 06/23/2025 OASIS B1300: Health Literacy Answer Aakash e Recorded Frequency of needing help to read materials from doctor or pharmacy Never 06/23/2025 PHQ-2 Answer Date Recorded Patient Health Questionnaire-2 Score 0 06/10/2025 Humiliation, Afraid, Rape, and Kick questionnair e Answer Date Recorded Within the last year, have y ou been afraid of your partner or ex-partner? No 06/10/2025 Within the last year, have y ou been humiliated or emotionally abused in other ways by your partner or ex-partner? No Within the last year, have y ou been kicked, hit, slapped, or otherwise physically hurt by your partner or ex-partner? No 06/10/2025 Within the last year, have y ou been raped or forced to have any kind of sexual activity by your partner or ex-partner? No 06/10/2025 AUDIT-C Answer Date Recorded Q1: How often do you have a drink containing alcohol? Never 06/10/2025 Q2: How many drinks containi ng alcohol do you have on a typical day when you are drinking? Patient does not drink Q3: How often do you have si x or more drinks on one occasion? Never 06/10/2025 Overall Financial Resource Strain (CARDIA) Answe r Date Recorded How hard is it for you to pa y for the very basics like food, housing, medical care, and heating? Not hard at all 06/10/2025 [facility] [place] [facility] Occupat ional Health - Occupational Stress Questionnaire Answer Date Recorded Do you feel stress - tense, restless, nervous, or anxious, or unable to sleep at night because your mind is troubled all the time - these days? Not at all 06/10/2025 Hunger Vital Sign Answer Date Recorded Within the past 12 months, y ou worried that your food would run out before you got the money to buy more. Never true 06/10/20 25 Within the past 12 months, t he food you bought just didn't last and you didn't have money to get more. Never true 06/10/2025 PRAPARE - Transportation Answer Date Re corded In the past 12 months, has l ack of transportation kept you from medical appointments or from getting medications? No 05/14 In the past 12 months, has l ack of transportation kept you from meetings, work, or from getting things needed for daily living? No 06/10/2025 Housing Stability Vital Sign Answer Aakash e Recorded In the last 12 months, was t here a time when you were not able to pay the mortgage or rent on time? No 06/10/2025 In the past 12 months, how m any times have you moved where you were living? 0 06/10/2025 At any time in the past 12 m [facility], were you homeless or living in a custodial (including now)? No 06/10/2025 B1300 Health Literacy Answer Date Recor ded How often do you need to hav e someone help you when you read instructions, pamphlets, or other written material from your doctor or pharmacy? Never 06/10/2025 [facility] Utilities Answer Date Recorded In the past 12 months has th e electric, gas, oil, or water company threatened to shut off services in your home? No 06/10/2025 Comments Unknown Sex and Gender Information Value Date Recorded Sex Assigned at Female 06/10/2025 3:03 PM CDT Legal Sex Female 5:54 PM CDT Gender Identity Female 06/10/2025 3:03 PM CDT Sexual Orientation Not on file Last Filed Vital Signs Vital Sign Reading Time Taken Comments Blood Pressure 164/84 07/06/2025 12:08 PM BATCH ROOM TECHNICIAN Pulse 78 07/06/2025 12:08 PM BATCH ROOM TECHNICIAN Temperature 36.5 C (97.7 F) 07/06/2025 12:08 PM BATCH ROOM TECHNICIAN Respiratory Rate 18 07/06/2025 12:0 8 PM BATCH ROOM TECHNICIAN Oxygen Saturation 98% 07/06/2025 12: 08 PM BATCH ROOM TECHNICIAN Inhaled Oxygen Concentration - - Weight 65.7 kg (144 lb 13.5 oz) 06/20/2025 4:50 AM BATCH ROOM TECHNICIAN Height 165.1 cm (5' 5) 06/10/2025 3:03 PM CDT Body Mass Index 24.1 06/10/2025 3:03 PM CDT Plan of Treatment Upcoming Encounters Date Type Department Care Team (Late st Contact Info) Description 07/15/2025 10:45 AM BATCH ROOM TECHNICIAN Appointment [facility] Care [address] [place] [address] [place], [employer] 07/22/2025 9:00 AM BATCH ROOM TECHNICIAN Appointment [facility] Care [address] [place] [address] Kady Lepe, PT [address] [place] [address] Health Maintenance Due Date Last Done Comments DTaP, Tdap and Td Vaccines ( 1 - Tdap) 10/27/1962 Pneumococcal Vaccine: 50+ Years (1 of 1 - PCV) 10/27/1993 Zoster Vaccines (1 of 2) 10/27/1993 Annual Medicare Wellness Visit 10/27/2008 Dexa Scan (General) 10/27/2008 RSV Immunization or 60+ Years (1 - 1-dose 75+ series) 10/27/2018 COVID-19 Vaccine (4 - 2024-2 6 season) 2025 07/25/2021, 10/12/2020, 09/09/2020 Influenza Adult (#1) 2025 Hepatitis A Vaccines Aged Out No long er eligible based on patient's age to complete this topic Meningococcal B Vaccine Aged Out No l onger eligible based on patient's age to complete this topic Meningococcal Vaccine Aged Out No giacomo jewels eligible based on patient's age to complete this topic RSV Immunizations Under 20 Months Aged Out No longer eligible b ased on patient's age to complete this topic Goals Goal Patient Goal Type Associated Problems Recent Progress Patient-Stated? Author Family - family caregiver with be involved in care transitions and discharge planning Lifestyle No Shelly Gaines RN Procedures Procedure Name Priority Date/Time Associated Diagnosis Comments XR ANKLE LT M3V Today 06/19/2025 2:30 PM BATCH ROOM TECHNICIAN CBC W/DIFF AUTOMATED Routine 06/18/2025 6:18 AM BATCH ROOM TECHNICIAN BASIC METABOLIC PANEL Routine 06/18/2025 6:18 AM BATCH ROOM TECHNICIAN CBC W/DIFF AUTOMATED Routine 06/11/2025 6:20 AM CDT BASIC METABOLIC PANEL Routine 06/11/2025 6:20 AM CDT from Last 3 Months Results * XR ANKLE LT M3V (06/19/2025 2:30 PM BATCH ROOM TECHNICIAN) Anatomical Region Laterality Modality Ankle Radiographic Laverne ging 06/19/2025 4:53 PM BATCH ROOM TECHNICIAN Impressions 06/19/2025 4:55 PM BATCH ROOM TECHNICIAN IMPRESSION: 1. Mild soft tissue swelling overlying the lateral malleolus with no underlying osseous abnormality. 2. Osteopenia. Ordered By: AMANDA JOSEPH Interpreted By: Jon Mosley, 06/19/2025 4:53 PM Narrative 06/19/2025 4:55 PM BATCH ROOM TECHNICIAN [facility] [address] [facility] [place] [address] Examination:Left Ankle Exam date/time: 06/19/2025 2:29 PM Reason For Exam: Lateral Malleolus erythema/tenderness No given history of trauma Comparison: None Technique: 3 views. Findings: Mild soft tissue swelling overlying the lateral malleolus. No underlying osseous abnormality. No radiopaque foreign bodies. No evidence of an osteochondral lesion of the talus.. Ankle mortise is well maintained. No evidence of an acute fracture or dislocation.. Osteopenia limits exam. Small plantar calcaneal spur. Procedure Note Adolfo Mosley MD - 06/19/2025 [facility] [address] [facility] [place] [address] Examination:Left Ankle Exam date/time: 06/19/2025 2:29 PM Reason For Exam: Lateral Malleolus erythema/tenderness No given history of trauma Comparison: None Technique: 3 views. Findings: Mild soft tissue swelling overlying the lateral malleolus. No underlyingosseous abnormality. No radiopaque foreign bodies. No evidence of an osteochondral lesion of the talus.. Ankle mortise iswell maintained. No evidence of an acute fracture or dislocation.. Osteopenia limitsexam. Small plantar calcaneal spur. IMPRESSION: 1. Mild soft tissue swelling overlying the lateral malleolus with nounderlying osseous abnormality. 2. Osteopenia. Ordered By: AMANDA JOSEPH Interpreted By: Jon Mosley, 06/19/2025 4:53 PM us Amanda Joseph MD GENERAL IMAGING Final Result * (ABNORMAL) BASIC METABOLIC PANEL (06/18/2025 6:18 AM BATCH ROOM TECHNICIAN) Only the most recent of2 resultswithin the time period is included. [facility] GLUCOSE 104(H) 70 - 99 MG/DL 06/18/2025 6:34 AM [facility] BUN 23(H) 7 - 18 MG/DL 06/18/2025 6:34 AM [facility] CREATININE S/P/B 1.12(H) 0.55 - 1.02 MG/DL 06/18/2025 6:34 AM [facility] SODIUM S/P/B 140 136 - 145 MMOL/L 06/18/2025 6:34 AM [facility] POTASSIUM S/P/B 4.8 3.5 - 5.1 MMOL/L 06/18/2025 6:34 AM [facility] CHLORIDE S/P/B 107 100 - 108 MMOL/L 06/18/2025 6:34 AM [facility] CO2 29.6 21 - 32 MMOL/L 06/18/2025 6:34 AM [facility] CALCIUM S/P/B 8.6 8.5 - 10.1 MG/DL 06/18/2025 6:34 AM [facility] ANION GAP 3.4(L) 5 - 15 MMOL/L 06/18/2025 6:34 AM [facility] BUN CREATININE RATIO 20.5 6 - 26 06/18/2025 6:34 AM [facility] GFR ESTIMATE 49(L) >90 ML/MIN/1.7 3 M2 06/18/2025 6:34 AM [facility] Comment: NOTE: eGFR is not calculated for patients <18 years of age. This is an estimated GFR calculation using the new CKD EPI creatinine equation without race and so does not require a correction factor for race. This estimated GFR should not be used for calculating drug doses. 06/18/2025 6:18 AM BATCH ROOM TECHNICIAN us Moises Rojas MD LABORATORY Final Result [facility] [address] [place] [id number], * (ABNORMAL) CBC W/DIFF AUTOMATED (06/18/2025 6:18 AM BATCH ROOM TECHNICIAN) Only the most recent of2 resultswithin the time period is included. WBC 10.86 4.4 - 11.0 x10'3/uL 06/18/2025 6:23 AM [facility] RBC 3.52(L) 4.50 - 5.10 x10'6/uL 06/18/2025 6:23 AM [facility] HGB 10.2(L) 12.3 - 15.3 G/DL 06/18/2025 6:23 AM [facility] HCT 31.6(L) 35.9 - 44.6 % 06/18/2025 6:23 AM [facility] MCV 89.8 80.0 - 96.0 FL 06/18/2025 6:23 AM [facility] MCH 29.0 25.3 - 30.9 PG 06/18/2025 6:23 AM [facility] MCHC 32.3 31.0 - 34.1 G/DL 06/18/2025 6:23 AM [facility] RDW 14.3 12.4 - 15.1 % 06/18/2025 6:23 AM [facility] PLT 445(H) 151 - 353 x10'3/uL 06/18/2025 6:23 AM [facility] MPV 9.3(L) 9.6 - 12.0 FL 06/18/2025 6:23 AM [facility] RBC MORPHOLOGY NORMAL 06/18/2025 6:23 AM [facility] PLT MORPH. NORMAL 06/18/2025 6:23 AM [facility] WBC MORPHOLOGY NORMAL 06/18/2025 6:23 AM [facility] LYMPHOCYTES % 19.3 15.8 - 45.0 % 06/18/2025 6:23 AM [facility] NEUTROPHILS % 67.5 42.1 - 71.9 % 06/18/2025 6:23 AM [facility] MONOCYTES % 7.6 5.7 - 12.5 % 06/18/2025 6:23 AM [facility] EOSINOPHILS 4.1 0.0 - 5.6 % 06/18/2025 6:23 AM [facility] BASOPHILS 1.1 0.0 - 1.3 % 06/18/2025 6:23 AM [facility] ABS. NEUTROPHILS 7.33(H) 1.40 - 6.00 x10'3/uL 06/18/2025 6:23 AM [facility] IMMATURE GRANS % 0.4 0.0 - 0.5 % 06/18/2025 6:23 AM [facility] ABS. LYMPHOCYTES 2.10 0.80 - 4.70 x10'3/uL 06/18/2025 6:23 AM [facility] 06/18/2025 6:18 AM BATCH ROOM TECHNICIAN us Moises Rojas MD LABORATORY Final Result [facility] [address] [place] [address], [place] [phone] from Last 3 Months Insurance [employer] Advance Directives * Full Code (Latest Code Status on File) Date Activated Date Inactivated Comments 06/24/2025 2:47 AM * DNR Date Activated Date Inactivated Comments 06/11/2025 10:43 AM 06/20/2025 3:13 PM * Full Code Date Activated Date Inactivated Comments 06/10/2025 3:57 PM 06/11/2025 10:43 AM Care Teams Geology Professor Relationship Specialty Start Date End Date Pedrito Moran MD [address] [place] [address] PCP - General FAMILY PRACTICE 06/10/25
--- OUTSIDE RECORDS SUMMARY | 2025-07-13 13:53 | XMS_ITS | Clinical Summary ---
Author Organization [facility] Address [address] [place] [address] Care Team Providers Care Bartacker Name Role Phone Pedrito Moran MD Primary Care Provider [phone] Source Comments [facility],non-owned Affiliates and Associated Physician Practices is amultiple site organization consisting of ambulatory clinics and hospital sitesin [place], [place], [place] and [place]. This disclosure is being madepursuant to the Care Everywhere program and may not contain all information available regarding this patient. Last updated 18.Vanilla Breeze Allergies No known active allergies Medications * Be aware that medications may not be up to date on this document. Alwaysverify current medications with the patient. alendronate (FOSAMAX) 70 MG tablet 10/30/2013 Active PREMARIN 0.9 MG tablet 02/13/2014 Active Active Problems No known active problems Family History Medical History Relation Name Comments Cancer - Other Mother Relation Name Status Comments Mother Social History Tobacco Use Types Packs/Day Years Used Date Smoking Tobacco: Never Smokeless Tobacco: Never Alcohol Use Standard Drinks/Week Comments No 0 (1 standard drink = 0.6 oz pur e alcohol) Comments No Sex and Gender Information Value Date Recorded Sex Assigned at Not on file Legal Sex Female 5:11 PM CDT Gender Identity Not on file Sexual Orientation Not on file Last Filed Vital Signs Vital Sign Reading Time Taken Comments Blood Pressure 120/74 04/01/2014 5:34 PM CDT Pulse 68 04/01/2014 5:34 PM CDT Temperature 37 C (98.6 F) 04/01/2014 5:34 PM CDT Respiratory Rate 20 04/01/2014 5:34 PM CDT Oxygen Saturation 97% 04/01/2014 5:34 PM CDT Inhaled Oxygen Concentration - - Weight 72.9 kg (160 lb 12.8 oz) 04/01/2014 5:34 PM CDT Height 165.1 cm (5' 5) 04/01/2014 5:34 PM CDT Body Mass Index 26.76 04/01/2014 5:34 PM CDT Plan of Treatment Health Maintenance Due Date Last Done Comments BONE DENSITY TESTING 1945 MEDICARE AWV 12 MONTHS 1945 DTAP/TDAP/TD VACCINES (1 - Tdap) 10/27/1962 PNEUMOCOCCAL VACCINE 50+ (1 of 1 - PCV) 10/27/1993 ZOSTER VACCINE (1 of 2) 10/27/1993 Respiratory Syncytial Virus (RSV) Vaccine Pt: or over 60 yrs (1 - 1-dose 75+ series) 10/27/2018 DEPRESSION SCREENING 08/13/2024 COVID-19 VACCINE ( - 2024-2 6 season) 2025 INFLUENZA VACCINE (#1) 2025 HEPATITIS B VACCINE Aged Out No longe r eligible based on patient's age to complete this topic HIB VACCINE Aged Out No longer eligi ble based on patient's age to complete this topic HPV VACCINE Aged Out No longer eligi ble based on patient's age to complete this topic MENINGOCOCCAL (Group B) VACC INE SHARED DECISION-MAKING Aged Out No longer eligibl e based on patient's age to complete this topic MENINGOCOCCAL GROUPS A/C/Y/W VACCINE Aged Out No longer eligible b ased on patient's age to complete this topic Insurance COMMERCIAL GENERIC MEDICARE ALEJANDRA ONLY COMMERCIAL GENERIC [facility] MEDICARE [facility] MEDICARE Care Teams Bartacker Relationship Specialty Start Date End Date Pedrito Moran MD [address] [place] [address] [facility] - General 04/11/22
--- OUTSIDE RECORDS SUMMARY | 2025-07-13 13:53 | XMS_ITS | Clinical Summary ---
Author Organization [facility] Address [address] [place] [address] Phone Care Team Providers Care Leasing Machine Tender Name Role Phone Pedrito Moran MD Primary Care Provider [phone] Allergies Active Allergy Reactions Criticality Noted Date Comments Sulfa (Sulfonamide Antibiotics) Unknown 01/11 Sulfamethoxazole-Trimethoprim Hives High 2021 Medications conjugated estrogens (PREMARIN) 0.9 mg tablet Take 0.9 mg by mouth daily. Active dicyclomine (BENTYL) 20 mg Oral tablet Take 1 Tab by mouth 2 times daily. 60 Tab 11 07/31/2012 Active hyoscyamine (LEVSIN) 0.125 mg Oral tablet Take 1 Tab by mouth 4 times daily as needed for Spasm. 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 Personal history of colonic polyp-10 mm sessile serrated polyp removed 01/201107/31/2012 Overview (07/31/2012): Repeat colon in 01/2014 Asymptomatic diverticulosis 07/31/2012 S/P laparoscopic cholecystectomy for gallstones 11/27/2011 S/P KIMBERLY-BSO for benign disease 11/27/2011 Menopausal state on HRT 11/27/2011 IBS (irritable bowel syndrome) Family History Medical History Relation Name Comments Cancer Sister kidney Relation Name Status Comments Sister Social History Tobacco Use Types Packs/Day Years Used Date Smoking Tobacco: Never Smokeless Tobacco: Never Alcohol Use Standard Drinks/Week Comments No 0 (1 standard drink = 0.6 oz pur e alcohol) Comments No Sex and Gender Information Value Date Recorded Sex Assigned at Not on file Legal Sex Female 6:03 AM DINKEY LOCOMOTIVE ENGINEER Gender Identity Not on file Sexual Orientation Not on file Last Filed Vital Signs Vital Sign Reading Time Taken Comments Blood Pressure 154/60 01/21/2022 11:22 AM CDT Pulse 67 01/21/2022 9:48 AM CDT Temperature 36.8 C (98.3 F) 01/21/2022 11:22 AM CDT Respiratory Rate 18 01/21/2022 11:22 AM CDT Oxygen Saturation 97% 01/21/2022 11:22 AM CDT Inhaled Oxygen Concentration - - Weight 63 kg (139 lb) 01/23/2022 2:02 PM CDT Height 165.1 cm (5' 5) 01/23/2022 2:02 PM CDT Body Mass Index 23.13 01/23/2022 2:02 PM CDT Plan of Treatment Health Maintenance Due Date Last Done Comments DTAP/TDAP/TD VACCINES (1 - Tdap) 10/27/1962 PNEUMOCOCCAL VACCINE 50+ YEARS (1 of 1 - PCV) 10/27/18 94 ZOSTER VACCINE (1 of 2) 10/27/1993 OSTEOPOROSIS SCREENING 10/27/2008 RSV VACCINE (60+ or ) (1 - 1-dose 75+ series) 10/27/2018 INFLUENZA VACCINE (#1) 2025 COLORECTAL SCREENING Discontinued 01/23/2011 Colorectal Cancer Screening Discontinued FIT-DNA Q 3 years Discontinued FIT/FOBT Q 1 year Discontinued Flex Sig/CT Colonography Q 5 years Discontinued Procedures Procedure Name Priority Date/Time Associated Diagnosis Comments ENDOSCOPY, COLON, SCREENING Routine 01/23/2011 from Last 3 Months or Most Recently Relevant to Health Maintenance Results * (ABNORMAL) ENDOSCOPY, COLON, SCREENING (01/23/2011) us Blair Robledo MD GI PROCEDURE ORDERABLES Edited [facility] from Last 3 Months or Most Recently Relevant to Health Maintenance Insurance [facility] MCR Care Teams Leasing Machine Tender Relationship Specialty Start Date End Date Pedrito Moran MD [address] [place] [address] PCP - General Family Practice 01/21/22
== END 2025-07-13 12:48 | disposition home or self-care (01) ==
PROVIDERS: PCP Family Medicine; Visit Provider Family Medicine
DX: Z78.0 Asymptomatic menopausal state (principal); M81.0 Age-related osteoporosis without current pathological fracture; M85.852 Other specified disorders of bone density and structure, left thigh; M85.851 Other specified disorders of bone density and structure, right thigh
CPT/HCPCS: 77080

== ENCOUNTER 2025-07-28 11:00 | Outpatient (RCR) | payer OTHER, SELFPAY ==
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
--- NOTE | 2025-07-16 11:54 | OPREHPOC ---
Outpatient Therapy Plan of Care This is a Multidisciplinary Plan of Care that may contain components documented by all disciplines (PT, OT, and ST.) ST Problem 1 ST Problem #[address] Goal 1 Goal / Goal Update The patient will participate in home programming to improve carry over/generalization of skills to the home environment. Target Visit [address] Problem #[address] Goal 1 Goal / Goal Update Cognition: 1. The patient will recall complex paragraph length information for 2-3 details using compensatory techniques with 90% minimal cues 2. The patient will attend to a structured task 7- 10 minutes without redirect. 3. The patient will demonstrate use of compensatory memory techniques (association, visualization, repetition, note taking) with 85% and minimal cues 4. The patient will be complaint with a HEP Target Visit 3
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
== END 2025-07-28 14:26 | disposition home or self-care (01) ==
LOC: ANHST 11:00
PROVIDERS: PCP Family Medicine; Visit Provider Family Medicine
DX: R29.898 Other symptoms and signs involving the musculoskeletal system (principal); S32.599S Other specified fracture of unspecified pubis, sequela; M16.0 Bilateral primary osteoarthritis of hip; R41.840 Attention and concentration deficit
CPT/HCPCS: 92507; 92523